=== PATIENT | female | born 1990 | race Two or more races ===

== ENCOUNTER 2018-07-20 08:35 | Inpatient (IN) | payer MEDICAID, OTHER ==
[2018-07-20] MEDS ORDERED: EPSOM SALT 454 GM TP PRN (09:11)
[2018-07-20] MEDS ORDERED: OXYTOCIN/RINGERS LACTATE 1,000 ML IV PRN (09:11)
[2018-07-20] MEDS ORDERED: LR 1,000 ML IV PRN (09:11)
[2018-07-20] MEDS ORDERED: IBUPROFEN 600 MG TAB PO PRN (09:11)
[2018-07-20] MEDS ORDERED: OLIVE OIL 118 ML BTL MISC PRN (09:11)
[2018-07-20] MEDS ORDERED: MISOPROSTOL 200 MCG TAB PR PRN (09:11)
[2018-07-20] MEDS ORDERED: LIDOCAINE 1% 300 MG/30 ML SDV SC PRN (09:11)
[2018-07-20] MEDS ORDERED: LR 500 ML IV PRN (09:19)
[2018-07-20] MEDS ORDERED: OXYTOCIN/RINGERS LACTATE 500 ML IV SCH (09:30)
[2018-07-20 09:32] LABS: PLATELET COUNT 218 10^3/uL (150-400)
--- NOTE | 2018-07-20 10:37 | GHP ---
DATE OF ADMISSION: 07/20/2018 ADMISSION DIAGNOSIS: Intrauterine at 40 and 5/7 weeks gestation, here for an elective cedric ction of labor for postdates. INDICATIONS: Patient is a 27-year-old 2, para 0-0-1-0, who is 40 and 5/7 weeks gestation. H er estimated date of confinement is 07/15/2018, dated by a 9-week ultrasound secondary to irregular c ycles. The patient initiated care at [facility] at 10 weeks gestation. has been overall uncomplicated. She was seen in the office earlier this week and was 3 cm dilated, 70% effaced, and -2 station. Membranes were set, but she did not progress into labor, so she present s today for induction of labor. MEDICAL HISTORY: Negative. MEDICATIONS: vitamins and iron. SURGICAL HISTORY: [place] teeth extraction. ALLERGIES: No known drug allergies. SOCIAL HISTORY: The patient is single. She denies tobacco, alcohol, or drug use. FAMILY MEDICAL HISTORY: Noncontributory. AUTO JOB ESTIMATOR HISTORY: Menarche at 19. Periods every 3-5 weeks lasting 7 days. She is a 2, para 0 -0-1-0. In 12/2012, she had a spontaneous at 8 weeks. She did not require D and C. curren t has been uncomplicated. Patient denies any history of any abnormal Pap smears or sexuall y-transmitted diseases. She had a low-grade Pap with this . Colposcopy was negative. REVIEW OF SYSTEMS: Ten-point review of systems was negative. Positive movement. No loss of f luid. No vaginal bleeding. She denies any headache or changes in vision. PHYSICAL EXAMINATION: VITAL SIGNS: Stable. GENERAL APPEARANCE: Alert and oriented x3. MUS[place] LETAL: Grossly intact. NEURO: Grossly intact. PSYCH: Appropriate affect. HEART: Regular. LUNG S: Clear to auscultation bilaterally. ABDOMEN: Gravid, nondistended, nontender. EXTREMITIES: Rev eal no calf tenderness or edema. PELVIC: 3 cm dilated, 70% effaced, and -2 station. is in t he vertex presentation. heart tracing is category 1. LABORATORY DATA: The patient's labs: Blood type O negative. Antibody screen negative. Ru rudolph nonimmune. GBS negative. HBsAg negative. HIV negative. Her 50 g glucose was 108. ASSESSMENT AND PLAN: 27-year-old, 2, para 0-0-1-0, who is 40 and 5/7 weeks gestation, here f or induction of labor. She has been started on Pitocin and will be managed expectantly. /[id number]/MODL
[2018-07-20] MEDS ORDERED: LIDOCAINE 1% 300 MG/30 ML SDV ONE (11:16)
[2018-07-20] MEDS ORDERED: OLIVE OIL 118 ML BTL ONE (11:16)
[2018-07-20] MEDS ORDERED: OXYTOCIN 10 UNIT/ML VIAL ONE (11:17)
[2018-07-20] MEDS ORDERED: MISOPROSTOL 200 MCG TAB ONE (11:17)
[2018-07-20] MEDS ORDERED: TERBUTALINE SULFATE 1 MG/ML VIAL ONE (11:17)
[2018-07-20] MEDS ORDERED: AMMONIA AROMATIC 1 EACH AMP IH ONE (11:17)
--- NOTE | 2018-07-20 13:18 | OBPROG ---
Labor Progress Note Assessment/Plan: Assessment: Plan: Subjective/Intrapartum Course: 07/20/18 13:17 patient still comfortable at 14 mu of pitocin. arom. small amount of clear fluid noted. status reassuring. Objective: 07/20/18 09:15 Patient ABO/Rh O NEGATIVE 07/20/18 09:15 - SVE Dilation (cm): 3 Effacement (%): 75 Station: -2 Membranes: AROM Amniotic Fluid Color: Clear - Contraction Pattern Assessment Current Contraction Pattern: Regular - FHR Assessment Cope FHR Pattern Variability: Moderate FHR Category: 1 - Procedures Non-surgical Procedures: Amniotomy - AP Antepartum Course: 07/20/18 13:18 unplanned . history of irregular cycles. dated by 10 weeks ultrasound. uncomplicated . desires iol for post dates. 3 cm in office this week. Oxytocin Orders Assessment - Pre-Induction/Augmentation Assessment Gestational Age: 40 week(s) and 5 day(s) ICD10 Worksheet Patient Problems: Problems Problem Status Onset Normal labor Acute (spontaneous vaginal delivery) Acute
[2018-07-20] MEDS ORDERED: PHENYLEPHRINE HCL 100 MCG/ML SYR ONE (15:18)
[2018-07-20] MEDS ORDERED: BUPIVACAINE 0.25% 10 ML SDV ONE (15:18)
[2018-07-20] MEDS ORDERED: fentaNYL 100 MCG/2 ML INJ ONE (15:19)
[2018-07-20] MEDS ORDERED: fentaNYL 2MCG/ML/BUP 0.1% RTU 100 ML BAG EP ONE (15:58)
--- NOTE | 2018-07-20 16:09 | OBPROG ---
Labor Progress Note Assessment/Plan: Assessment: Plan: Subjective/Intrapartum Course: 07/20/18 13:17 patient still comfortable at 14 mu of pitocin. arom. small amount of clear fluid noted. status reassuring. 07/20/18 16:08 patient comfortable with epidural. pitocin is at 14 mu. minimal change in cervix. IUPC and FECG placed without difficulty. will continue pitocin and repositioning. Objective: 07/20/18 09:15 Patient ABO/Rh O NEGATIVE 07/20/18 09:15 - SVE Dilation (cm): 4 Effacement (%): 80 Station: -2 Membranes: AROM Amniotic Fluid Color: Clear - Contraction Pattern Assessment Current Contraction Pattern: Regular - FHR Assessment Cope FHR Pattern Variability: Moderate FHR Category: 1 - Procedures Non-surgical Procedures: Amniotomy, FSE, IUPC - AP Antepartum Course: 07/20/18 13:18 unplanned . history of irregular cycles. dated by 10 weeks ultrasound. uncomplicated . desires iol for post dates. 3 cm in office this week. Oxytocin Orders Assessment - Pre-Induction/Augmentation Assessment Gestational Age: 40 week(s) and 5 day(s) ICD10 Worksheet Patient Problems: Problems Problem Status Onset Normal labor Acute
--- NOTE | 2018-07-20 16:14 | PDANEPAE ---
ANE History of Present Illness Labor 3 cm for epidural ANE Past Medical History - Cardiovascular History Hx Hypertension: No Hx Arrhythmias: No - Pulmonary History Hx Asthma/Reactive Airway Disease: No Hx Recent Upper Respiratory Infection: No Hx Sleep Apnea: No ANE Review of Systems Review of Systems: ANE Patient History - Allergies Allergies/Adverse Reactions: No Known Allergies Allergy (Unverified 07/20/18 08:54) - Home Medications Home medications: home medication list seen and reviewed - Anes Hx Anes Hx: no prior problems (No prior epidurals) ANE Labs/Vital Signs - Labs Result Diagrams: 07/20/18 09:15 - Vital Signs Height: 162.56 cm Weight: 81.193 kg ANE Physical Exam - Airway Neck exam: FROM Mallampati Score: Class 2 Mouth exam: normal dental/mouth exam - Pulmonary Pulmonary: no respiratory distress - Cardiovascular Cardiovascular: regular rate and rhythym ANE Anesthesia Plan Anesthesia Plan: epidural
--- NOTE | 2018-07-20 16:18 | POSTANESTH ---
Post Anesthetic Evaluation Cardiovascular Status: Similar to Pre-Op Cond Respiratory Status: Similar to Pre-op Cond. Level of Consciousness/Mental Status: Can Participate in Eval Pain Control: Adequate, Prn Tx Ordered Nausea/Vomiting Control: Adequate, Prn Tx Ordered Complications Possibly Related to Anesthesia: None Noted (Good pain relief and PCEA started)
[2018-07-20] MEDS ORDERED: LR 500 ML IV SCH (16:30)
[2018-07-21] MEDS ORDERED: fentaNYL 2MCG/ML/BUP 0.1% RTU 100 ML BAG EP ONE (01:41)
--- NOTE | 2018-07-21 01:47 | OBPP ---
Progress Note Assessment/Plan: Assessment: Plan: Subjective/ Course: 07/21/18 01:40 i was called to room to assess heart tones while pushing. patient had been pushing. during my exam i was able to feel and anterior lip of cervix. there is no cervix posteriorly. there is anterior right cervix, cervix is not reducible with pushing. pelvic outlet is tight. discussed with patient and fob. will continue pitocin and position changes and reassess and begin pushing when complete. Objective: 07/20/18 09:15 Patient ABO/Rh O NEGATIVE 07/20/18 09:15
--- NOTE | 2018-07-21 01:49 | OBPROG ---
Labor Progress Note Assessment/Plan: Assessment: Plan: Subjective/Intrapartum Course: 07/20/18 13:17 patient still comfortable at 14 mu of pitocin. arom. small amount of clear fluid noted. status reassuring. 07/20/18 16:08 patient comfortable with epidural. pitocin is at 14 mu. minimal change in cervix. IUPC and FECG placed without difficulty. will continue pitocin and repositioning. 07/21/18 01:48 i was called to room to assess heart tones while pushing. patient had been pushing. during my exam i was able to feel and anterior lip of cervix. there is no cervix posteriorly. there is anterior right cervix, cervix is not reducible with pushing. pelvic outlet is tight. discussed with patient and fob. will continue pitocin and position changes and reassess and begin pushing when complete. 07/21/18 01:47 Objective: 07/20/18 09:15 Patient ABO/Rh O NEGATIVE 07/20/18 09:15 - SVE Dilation (cm): 8 Effacement (%): 100 Membranes: AROM Amniotic Fluid Color: Clear - Contraction Pattern Assessment Current Contraction Pattern: Regular - FHR Assessment Cope FHR Category: 2 - Procedures Non-surgical Procedures: Amniotomy, FSE, IUPC - AP Antepartum Course: 07/20/18 13:18 unplanned . history of irregular cycles. dated by 10 weeks ultrasound. uncomplicated . desires iol for post dates. 3 cm in office this week. Oxytocin Orders Assessment - Pre-Induction/Augmentation Assessment Gestational Age: 40 week(s) and 5 day(s) ICD10 Worksheet Patient Problems: Problems Problem Status Onset Normal labor Acute
--- NOTE | 2018-07-21 04:57 | OBPROG ---
Labor Progress Note Assessment/Plan: Assessment: Plan: Subjective/Intrapartum Course: 07/20/18 13:17 patient still comfortable at 14 mu of pitocin. arom. small amount of clear fluid noted. status reassuring. 07/20/18 16:08 patient comfortable with epidural. pitocin is at 14 mu. minimal change in cervix. IUPC and FECG placed without difficulty. will continue pitocin and repositioning. 07/21/18 01:48 i was called to room to assess heart tones while pushing. patient had been pushing. during my exam i was able to feel and anterior lip of cervix. there is no cervix posteriorly. there is anterior right cervix, cervix is not reducible with pushing. pelvic outlet is tight. discussed with patient and fob. will continue pitocin and position changes and reassess and begin pushing when complete. 07/21/18 01:47 07/21/18 04:54 patient complete and pushing. very good maternal effort. tight pelvix floor. having decels with pushing but status is reassuring. Objective: 07/20/18 09:15 Patient ABO/Rh O NEGATIVE 07/20/18 09:15 - SVE Dilation (cm): 10 Effacement (%): 100 Station: +1 Membranes: AROM Amniotic Fluid Color: Clear - Contraction Pattern Assessment Current Contraction Pattern: Regular - FHR Assessment Cope FHR Pattern Variability: Moderate FHR Category: 2 - Procedures Non-surgical Procedures: Amniotomy, FSE, IUPC - AP Antepartum Course: 07/20/18 13:18 unplanned . history of irregular cycles. dated by 10 weeks ultrasound. uncomplicated . desires iol for post dates. 3 cm in office this week. Oxytocin Orders Assessment - Pre-Induction/Augmentation Assessment Gestational Age: 40 week(s) and 5 day(s) ICD10 Worksheet Patient Problems: Problems Problem Status Onset Normal labor Acute
[2018-07-21] MEDS ORDERED: oxyCODONE IR 5 MG TAB PO PRN (05:56)
[2018-07-21] MEDS ORDERED: SIMETHICONE 80 MG TAB CHEW PO PRN (05:56)
[2018-07-21] MEDS ORDERED: HYDROCORTISONE 0.5% CREAM TP PRN (05:56)
--- NOTE | 2018-07-21 05:56 | OBDEL ---
Info Type: Vaginal Presentation at Delivery: Vertex L&D Analgesia/Anesthesia Type: Epidural GBS+: No Intrapartum Medications: Generic Name Dose Route Start Last Admin Trade Name Chandrakant PRN Reason Stop Dose Admin Oxytocin/Lactated Ringer's 500 mls @ 0 mls/hr 07/20/18 09:30 07/20/18 09:33 Pitocin 30 Units/Lr (Premix) IV 01/16/19 09:29 500 mls CONT GLENYS Administration Protocol Per Protocol - Hospital Course Intrapartum: 07/20/18 13:17 patient still comfortable at 14 mu of pitocin. arom. small amount of clear fluid noted. status reassuring. 07/20/18 16:08 patient comfortable with epidural. pitocin is at 14 mu. minimal change in cervix. IUPC and FECG placed without difficulty. will continue pitocin and repositioning. 07/21/18 01:48 i was called to room to assess heart tones while pushing. patient had been pushing. during my exam i was able to feel and anterior lip of cervix. there is no cervix posteriorly. there is anterior right cervix, cervix is not reducible with pushing. pelvic outlet is tight. discussed with patient and fob. will continue pitocin and position changes and reassess and begin pushing when complete. 07/21/18 01:47 07/21/18 04:54 patient complete and pushing. very good maternal effort. tight pelvix floor. having decels with pushing but status is reassuring. Indications for Delivery: Elective Vaginal Delivery - Delivery Provider Delivery Physician/CNM: Marcella Roberson - Labor and Delivery Onset of Contractions Date: 07/20/18 Onset of Contractions Time: 13:15 Onset of Contractions Type: Induced Rupture of Membranes Date: 07/20/18 Rupture of Membranes Time: 13:15 Rupture of Membranes Type: Artificial Amniotic Fluid Color: Clear Dilation Complete Date: 07/21/18 Dilation Complete Time: 04:50 Placenta Delivery Date: 07/21/18 Non-surgical Procedures: Amniotomy, FSE, IUPC Laceration: 2nd Degree Repair: 3-0 Vaginal Sponge Count Correct: Yes Vaginal Needle Count Correct: Yes Vaginal Sweep Performed: Yes EBL: 300 Delivery Events: Other (Specify) (occult cord prolapse, velementous cord insertion, post atony resolved with cytotec and pitocin) - Medications Labor Augmentation/Induction Methods Used: Pitocin Labor Augmentation/Induction Indication: Elective Fults Data JAYME: 07/15/18 Gestational Age: 40 week(s) and 6 day(s) Cope Delivery Date: 07/21/18 Delivery Time: 05:26 Sex of : Female Score (1 Min): 8 Score (5 Min): 8 ICD10 Worksheet Patient Problems: Problems Problem Status Onset Normal labor Acute
[2018-07-21] MEDS ORDERED: MEASLES,MUMPS&RUBELLA VACC/PF 0.5 ML VIAL SC ONE (06:00)
[2018-07-21] MEDS: IBUPROFEN 600 MG TAB PO PRN ×2 (12:11→19:44)
[2018-07-21] MEDS: DOCUSATE SODIUM 100 MG CAP PO PRN ×2 (12:12→23:36)
--- NOTE | 2018-07-21 12:43 | OBPP ---
Progress Note Assessment/Plan: Assessment: 27 yo [id number] PPD#0 S/p just over 7 hours ago, after elective IOL. Doing well. Plan: Continue routine pp cares. Janae Sweeney MD, FACOG 07/21/18 12:55 Subjective/ Course: 07/21/18 01:40 i was called to room to assess heart tones while pushing. patient had been pushing. during my exam i was able to feel and anterior lip of cervix. there is no cervix posteriorly. there is anterior right cervix, cervix is not reducible with pushing. pelvic outlet is tight. discussed with patient and fob. will continue pitocin and position changes and reassess and begin pushing when complete. 07/21/18 12:56 Pt doing well. Ambulating and voiding without difficulty. going well so far. Mod lochia. Discomfort controlled with po meds. Objective: 07/20/18 09:15 Patient ABO/Rh O NEGATIVE 07/21/18 06:30 Temp Pulse Resp BP Pulse Ox 36.9 C 75 16 90/54 L 94 07/21/18 11:40 07/21/18 11:40 07/21/18 11:40 07/21/18 11:40 07/21/18 11:40 gen - pleasant, NAD CV - RRR chest - CTAB abd - soft, fundus firm at u-1, NT ext - trace BLE edema, Hugo's neg perineum - repair intact, mod edema and tenderness, peripad with min lochia Uterine Position/Fundal Height: Umbilicus -1 Uterine Tone: Firm
[2018-07-22] MEDS: IBUPROFEN 600 MG TAB PO PRN ×3 (06:44→20:29)
--- NOTE | 2018-07-22 10:04 | OBPP ---
Progress Note Assessment/Plan: Assessment: ppd# 1 s/p rh neg - rhogam ordered rubella non immune breast feeding Plan: 07/22/18 10:01 Subjective/ Course: 07/21/18 01:40 i was called to room to assess heart tones while pushing. patient had been pushing. during my exam i was able to feel and anterior lip of cervix. there is no cervix posteriorly. there is anterior right cervix, cervix is not reducible with pushing. pelvic outlet is tight. discussed with patient and fob. will continue pitocin and position changes and reassess and begin pushing when complete. 07/21/18 12:56 Pt doing well. Ambulating and voiding without difficulty. going well so far. Mod lochia. Discomfort controlled with po meds. 07/22/18 10:04 patient is doing well overall. is very sore. pain is controlled. normal lochia. is tired but feeling ok mood antunez. working on breast feeding. denies headache and changes in vision. Objective: 07/20/18 09:15 Patient ABO/Rh O NEGATIVE 07/21/18 06:30 Temp Pulse Resp BP Pulse Ox 36.6 C 68 16 102/63 97 07/22/18 08:54 07/22/18 08:54 07/22/18 08:54 07/22/18 08:54 07/22/18 08:54 Physical Exam - Physical Exam Neck: non-tender, full range of motion Respiratory: chest non-tender, lungs clear, normal breath sounds Cardiac/Chest: normal peripheral pulses, regular rate, rhythm Abdomen: normal bowel sounds, non-tender, other (fundus firm and non tender) Extremities: normal range of motion, non-tender, normal inspection, normal capillary refill Skin: normal color, warm/dry Neuro/Psych: no motor/sensory deficits, alert, normal mood/affect, oriented x 3
[2018-07-22] MEDS: ACETAMINOPHEN 325 MG TAB PO PRN ×2 (13:13→20:29)
[2018-07-22] MEDS: DOCUSATE SODIUM 100 MG CAP PO PRN ×2 (17:20→20:30)
[2018-07-23] MEDS: ACETAMINOPHEN 325 MG TAB PO PRN ×2 (02:33→08:25)
[2018-07-23] MEDS: IBUPROFEN 600 MG TAB PO PRN ×2 (02:33→08:25)
[2018-07-23] MEDS: DOCUSATE SODIUM 100 MG CAP PO PRN (08:25)
[2018-07-23 09:27] VITALS: BP 99/64
[2018-07-23] MEDS ORDERED: MEASLES,MUMPS&RUBELLA VACC/PF 0.5 ML VIAL SC ONE (11:30)
--- NOTE | 2018-07-23 12:47 | OBGCSDC ---
General Delivery Information - General Info : 1 Para: 1 Abortions: 0 Type: Vaginal L&D Analgesia/Anesthesia Type: Epidural Admission Date: 07/20/18 Labs: Patient ABO/Rh O NEGATIVE 07/21/18 06:30 Hct 40.3 % (38.0-47.0) 07/20/18 09:15 - Hospital Course Antepartum: 07/20/18 13:18 unplanned . history of irregular cycles. dated by 10 weeks ultrasound. uncomplicated . desires iol for post dates. 3 cm in office this week. Intrapartum: 07/20/18 13:17 patient still comfortable at 14 mu of pitocin. arom. small amount of clear fluid noted. status reassuring. 07/20/18 16:08 patient comfortable with epidural. pitocin is at 14 mu. minimal change in cervix. IUPC and FECG placed without difficulty. will continue pitocin and repositioning. 07/21/18 01:48 i was called to room to assess heart tones while pushing. patient had been pushing. during my exam i was able to feel and anterior lip of cervix. there is no cervix posteriorly. there is anterior right cervix, cervix is not reducible with pushing. pelvic outlet is tight. discussed with patient and fob. will continue pitocin and position changes and reassess and begin pushing when complete. 07/21/18 01:47 07/21/18 04:54 patient complete and pushing. very good maternal effort. tight pelvix floor. having decels with pushing but status is reassuring. : 07/21/18 01:40 i was called to room to assess heart tones while pushing. patient had been pushing. during my exam i was able to feel and anterior lip of cervix. there is no cervix posteriorly. there is anterior right cervix, cervix is not reducible with pushing. pelvic outlet is tight. discussed with patient and fob. will continue pitocin and position changes and reassess and begin pushing when complete. 07/21/18 12:56 Pt doing well. Ambulating and voiding without difficulty. going well so far. Mod lochia. Discomfort controlled with po meds. 07/22/18 10:04 patient is doing well overall. is very sore. pain is controlled. normal lochia. is tired but feeling ok mood antunez. working on breast feeding. denies headache and changes in vision. Vaginal - Delivery Provider Delivery Physician/CNM: Marcella Roberson - Diagnosis Labor: Induced Rupture of Membranes Type: Artificial Amniotic Fluid Color: Clear Laceration: 2nd Degree Repair: 3-0 Delivery Events: Other (Specify) (occult cord prolapse, velementous cord insertion, post atony resolved with cytotec and pitocin) - Procedures Non-surgical Procedures: Amniotomy, FSE, IUPC - Delivery Non-surgical Procedures: Amniotomy, FSE, IUPC EBL: 300 Data JAYME: 07/15/18 Gestational Age: 41 week(s) and 1 day(s) Cope Delivery Date: 07/21/18 Delivery Time: 05:26 Sex of : Female Yolyn Weight (gm): 3850 g Score (1 Min): 8 Score (5 Min): 8
--- NOTE | 2018-07-23 12:47 | OBPP ---
Progress Note Assessment/Plan: Assessment: Plan: Subjective/ Course: 07/21/18 01:40 i was called to room to assess heart tones while pushing. patient had been pushing. during my exam i was able to feel and anterior lip of cervix. there is no cervix posteriorly. there is anterior right cervix, cervix is not reducible with pushing. pelvic outlet is tight. discussed with patient and fob. will continue pitocin and position changes and reassess and begin pushing when complete. 07/21/18 12:56 Pt doing well. Ambulating and voiding without difficulty. going well so far. Mod lochia. Discomfort controlled with po meds. 07/22/18 10:04 patient is doing well overall. is very sore. pain is controlled. normal lochia. is tired but feeling ok mood antunez. working on breast feeding. denies headache and changes in vision. Objective: 07/20/18 09:15 Patient ABO/Rh O NEGATIVE 07/21/18 06:30 Temp Pulse Resp BP Pulse Ox 36.5 C 70 16 99/64 L 95 07/23/18 08:00 07/23/18 08:00 07/23/18 08:00 07/23/18 08:00 07/22/18 20:00
== END 2018-07-23 13:50 | disposition home or self-care (01) | DRG 560 ==
LOC: FLD 08:35 → FOB 07-21 09:35
PROVIDERS: ADMIT Obstetrics & Gynecology; ATTEND Obstetrics & Gynecology
DX: O48.0 Post-term pregnancy (principal); O72.1 Other immediate postpartum hemorrhage; O43.123 Velamentous insertion of umbilical cord, third trimester; O76 Abnormality in fetal heart rate and rhythm complicating labor and delivery; O70.1 Second degree perineal laceration during delivery; Z3A.40 40 weeks gestation of pregnancy; Z37.0 Single live birth
CPT/HCPCS: J2370; J2590; J3010; J3105